=== PATIENT | female | born 1950 | race African-American/Black ===

== ENCOUNTER 2016-10-07 23:55 | Emergency (ER) | payer BC ==
--- NOTE | ~2016-10-07 | CT4 ---
[facility] A Service of [facility] RADIOLOGY TEXT RESULTS PATIENT: CRISTIAN HARRISON LOCATION: [facility] : 54 UNIT #: [id number] AGE: [address]: Javy Finley MD SEX: F ORDER DR: [id number] [facility] [address] [place], [place] [address] [id number] MR#: [id number] Acc #: [id number] NAME: CRISTIAN HARRISON. : 1950 SEX: F STUDY DATE/TIME: 10/08/2016 2:45 UNIT: [facility] ROOM: STUDY DESCRIPTION: CT Abd and Pelv Wo Cont Attending Physician: Javy Finley M.D. Ordering Physician: Javy Finley M.D. Primary Care Physician: Chelsey Pike M.D. MEDICAL IMAGING REPORT This report is preliminary unless electronic signature is present EXAM CT abdomen and pelvis without contrast. INDICATIONS Left flank and generalized abdominal pain for the past 2-[address] of the abdomen and pelvis. This CT exam was performed with one or more of the following radiation dose reduction techniques: automatic exposure control, adjustment of mA and/or kV according to patient size, and iterative reconstruction. COMPARISON None FINDINGS ABDOMEN WITHOUT CONTRAST: Included lung bases are clear. There are scattered hepatic cysts, measuring up to 6 cm. Spleen, adrenal glands, pancreas unremarkable. Previous cholecystectomy. Small hiatal hernia. Moderate colonic stool burden. Appendix is normal. Bowel loops nondilated. 1.7-cm cyst in the left kidney. No radiodense urinary system calculus. PELVIS WITHOUT CONTRAST: Significantly degraded by streak artifact from hip prostheses. No visible pelvic mass. No visible radiodense bladder calculus. No aggressive-appearing bone lesion. IMPRESSION 1. No acute findings in the abdomen or pelvis. 2. Hepatic cysts. 3. Left renal cyst and a small hiatal hernia. [facility] A Service [facility] RADIOLOGY TEXT RESULTS PATIENT: CRISTIAN HARRISON LOCATION: [facility] : 54 UNIT #: [id number] AGE: [address]: Javy Finley MD SEX: F ORDER DR: Dictated by... Parish Ortega M.D. THIS IS AN ELECTRONICALLY VERIFIED REPORT Parish Ortega M.D. at 10/08/2016 9:52 PM ANIBAL/ayse TD: 10/08/2016 11:46 JOB #: [id number] MEDICAL IMAGING REPORT Page 1 of 1 COPY
[~2016-10-07 23:55] MED LIST: AMLODIPINE BESY10 MG PO; ASPIRIN81 M2 PO; LIPITOR20 MG PO; MOBIC15 MG PO; NASONEX17 GM; NICOTINE1 EAC1 TD; PRINIVIL20 M1 PO; TOPROL XL50 MG PO
[2016-10-08 02:04] LABS: POC - TROPONIN <0.05 ng/mL (<=0.05)
[2016-10-08 03:02] LABS: BASOPHIL% 0.3 % (0-2.5); EOSINOPHIL% 0.1 % (0.0-7.0); HEMATOCRIT 41.5 % (35.0-45.0); HEMOGLOBIN 13.9 gm/dL (12.0-16.0); LYMPHOCYTE% 13.6 % (17.0-45.0); MEAN CELL VOLUME 89.5 FL (83-96); MEAN CORPUSCULAR HEMOGLOBIN 29.9 PG (28-34); MEAN CORPUSCULAR HGB CONC 33.4 g/dL (30-36); MEAN PLATELET VOLUME 6.6 FL (6.5-11.5); MONOCYTE# 0.1 X10e3 (0-1.0); NEUTROPHIL# 6.3 X10e3 (1.5-7.1); PLATELET COUNT 270 X10e3 (140-420); RED BLOOD COUNT 4.64 X10e (3.90-5.30); RED CELL DISTRIBUTION WIDTH 14.3 % (11.0-15.5); WHITE BLOOD COUNT 7.5 X10e3 (4.0-10.5)
[2016-10-08 03:10] LABS: DIFF IND NO
[2016-10-08 03:15] LABS: ALBUMIN SERUM 4.5 g/dL (3.5-5.0); BILIRUBIN, DIRECT 0.1 mg/dL (0.0-0.2); BILIRUBIN,INDIRECT 0.7 mg/dL (0.0-0.9); BILIRUBIN,TOTAL 0.8 mg/dL (0.2-2.0); BUN/CREATININE RATIO 13.33; CALCIUM SERUM 9.6 mg/dL (8.4-10.2); CREATININE SERUM 0.9 mg/dL (0.6-1.4); GLOM FILT RATE Estimated 78.4 mL/min (>60); POTASSIUM 3.5 mmol/L (3.5-5.1); PROTEIN TOTAL SERUM 9.5 g/dL (6.0-8.3)
== END 2016-10-08 04:27 | disposition home or self-care (01) ==
LOC: CED 23:55
PROVIDERS: Emergency Medicine
DX: M54.32 Sciatica, left side (principal); I10 Essential (primary) hypertension; Z96.643 Presence of artificial hip joint, bilateral
CPT/HCPCS: 36415; 74176; 80048; 80076; 82553; 84484; 85025; 96374; 99284; J1885; J2405